=== PATIENT | male | born 1980 | race African-American/Black ===

== ENCOUNTER 2016-12-01 05:55 | Observation (INO) | payer OTHER ==
[2016-12-01] MEDS ORDERED: ASPIRIN 81 MG CHEW PO STA (06:50)
[2016-12-01 07:27] LABS: Basophils # (A) 0.1 k/uL (0-0.2); Basophils % (A) 0 %; CH 30.5; CHCM 33.8; Eosinophils # (A) 0.3 k/uL (0-0.7); Eosinophils % (A) 2 %; HCT 47.4 % (39.0-53.0); HDW 2.59; HGB 15.8 gm/dL (13.0-17.5); Luc # (Auto) 0.09; Luc % (Auto) 1; Lymphocytes # (A) 1.9 k/uL (1.0-4.8); Lymphocytes % (A) 11 %; MCH 30.3 pg (25.0-35.0); MCHC 33.3 g/dL (31.0-37.0); Mean Platelet Volume 8.5; Monocytes # (A) 0.5 k/uL (0-1.0); Monocytes % (A) 3 %; Neutrophils % (A) 83 %; RBC 5.21 m/uL (4.30-5.90); WBC 16.8 k/uL (3.8-10.6); WBC (Perox) 16.69
[2016-12-01 07:40] LABS: ALT 29 U/L (21-72); AST 27 U/L (17-59); Acetaminophen <10.0 ug/mL; Alkaline Phosphatase 55 U/L (38-126); Anion Gap 12 mmol/L; Blood Urea Nitrogen 13 mg/dL (9-20); Calcium 8.4 mg/dL (8.4-10.2); Carbon Dioxide 24 mmol/L (22-30); Chloride 103 mmol/L (98-107); Glucose 380 mg/dL (74-99); Magnesium 2.1 mg/dL (1.6-2.3); Non-African American GFR(MDRD) 48 (>60 ml/min/1.73 sqM); Potassium 4.3 mmol/L (3.5-5.1); Sodium 139 mmol/L (137-145); Total Bilirubin 1.6 mg/dL (0.2-1.3); Total Protein 6.3 g/dL (6.3-8.2)
[2016-12-01 07:48] LABS: INR 1.1 (<1.1); Partial Thromboplastin Time 22.2 sec (22.0-30.0); Prothrombin Time 10.8 sec (9.0-12.0)
[2016-12-01 07:52] LABS: Creatine Kinase 254 U/L (55-170)
--- NOTE | 2016-12-01 07:54 | XR ---
EXAMINATION TYPE: XR chest 1V portable DATE OF EXAM: 12/01/2016 COMPARISON: NONE HISTORY: Chest pain TECHNIQUE: Single frontal view of the chest is obtained. FINDINGS: There is no focal air space opacity, pleural effusion, or pneumothorax seen. The cardiac silhouette size is within normal limits. The osseous structures are intact. IMPRESSION: 1. No acute process.
[2016-12-01] MEDS ORDERED: HEPARIN SODIUM,PORCINE 5,000 UNIT/ML 1 ML VIAL IV ONE (07:58)
[2016-12-01] MEDS ORDERED: NITROGLYCERIN SL TABS 0.4 MG TAB SUBLINGUAL PRN (07:58)
[2016-12-01] MEDS ORDERED: HEPARIN SODIUM,PORCINE/D5W PMX 25,000 UNIT in DEXTROSE/WATER 1 500ML.BAG IV SCH (08:00)
[2016-12-01 08:05] LABS: Creatine Kinase MB 1.4 ng/mL (0.0-2.4); Troponin I <0.012 ng/mL (0.000-0.034)
[2016-12-01] MEDS ORDERED: NALOXONE 0.4 MG/ML 1 ML VIAL IV STA (08:06)
--- NOTE | 2016-12-01 08:06 | ED ---
Overdose HPI - General Source: patient, EMS Mode of arrival: EMS Limitations: altered mental status - History of Present Illness MD Complaint: accidental overdose -: unknown Context: Accidental Overdose: wanted to get high <RosaMan - Last Filed: 12/01/16 08:02> <Justo Soriano - Last Filed: 12/01/16 10:15> - General Chief Complaint: Overdose Stated Complaint: Altered Mental Status Time Seen by Provider: 12/01/16 06:02 - History of Present Illness Initial Comments: This patient is a 36-year-old man brought by EMS for suspected overdose. The patient was reportedly found unresponsive by his roommate, who felt that he was not breathing and called EMS. EMS did arrive and found the patient with appear to be agonal respirations and administered Narcan at which point the patient became alert. The patient did reportedly admit to using some cocaine but denied using opioids. When I interview the patient he states that he does occasionally alliance party. Denied use of alcohol. Patient denied chest pain or dyspnea. No abdominal pain. (Man Lee) - Related Data Home Medications Medication Instructions Recorded Confirmed No Known Home Medications [No 06/30/16 12/01/16 Known Home Medications] Allergies Allergy/AdvReac Type Severity Reaction Status Date / Time Penicillins Allergy Unknown Verified 12/01/16 06:03 Review of Systems ROS Other: All systems not noted in ROS Statement are negative. Limitations: ROS unobtainable due to patients medical condition Respiratory: Denies: cough, dyspnea Cardiovascular: Denies: chest pain Gastrointestinal: Denies: abdominal pain, vomiting Musculoskeletal: Denies: back pain Skin: Denies: rash Neurological: Denies: headache, weakness Psychiatric: Denies: suicidal thoughts <RosaMan - Last Filed: 12/01/16 08:02> ROS Other: All systems not noted in ROS Statement are negative. <Justo Soriano - Last Filed: 12/01/16 10:15> ROS Statement: Those systems with pertinent positive or pertinent negative responses have been documented in the HPI. Past Medical History Additional Past Medical History / Comment(s): ulcers History of Any Multi-Drug Resistant Organisms: None Reported Additional Past Surgical History / Comment(s): ulcer repair, Past Psychological History: No Psychological Hx Reported Smoking Status: Current every day smoker Past Alcohol Use History: None Reported Past Drug Use History: None Reported <StephanietamMan - Last Filed: 12/01/16 08:02> General Exam Limitations: physical limitation General appearance: alert, appears intoxicated Head exam: Present: atraumatic, normocephalic Eye exam: Present: normal appearance. Absent: scleral icterus, conjunctival injection ENT exam: Present: mucous membranes dry Neck exam: Present: normal inspection, full ROM. Absent: meningismus Respiratory exam: Present: normal lung sounds bilaterally. Absent: respiratory distress, wheezes, rales, rhonchi, stridor Cardiovascular Exam: Present: tachycardia, irregular rhythm, normal heart sounds. Absent: systolic murmur, diastolic murmur, rubs, gallop GI/Abdominal exam: Present: soft. Absent: distended, tenderness, guarding, rebound, mass Extremities exam: Present: normal inspection, normal capillary refill. Absent: pedal edema, calf tenderness Back exam: Present: normal inspection. Absent: CVA tenderness (R), CVA tenderness (L) Neurological exam: Present: altered, oriented X3, CN II-XII intact. Absent: motor sensory deficit Skin exam: Present: warm, dry, intact, normal color. Absent: rash <RosaMan - Last Filed: 12/01/16 08:02> Medical Decision Making - Lab Data Result diagrams: 12/01/16 06:11 12/01/16 06:11 - EKG Data -: EKG Interpreted by [facility] EKG shows normal: axis (Normal), intervals (Normal), QRS complexes (Normal), ST- T waves (Normal) Rate: tachycardia Interpretation: other (The underlying rhythm appears to be atrial fibrillation with a rate approximately 111) <RosaMan - Last Filed: 12/01/16 08:02> - Lab Data Result diagrams: 12/01/16 06:11 12/01/16 06:11 - Radiology Data Radiology results: report reviewed (Chest x-ray is negative for acute disease), image reviewed <Justo Soriano - Last Filed: 12/01/16 10:15> - Medical Decision Making 36 mallei are with new-onset A. fib polysubstance drug abuse and chest pain. Patient be admitted for rule out cardiac disease, likely drug induced A. fib and monitoring of alert, mental status (Justo Soriano) - Lab Data Lab Results 12/01/16 12/01/16 12/01/16 Range/Units 06:11 06:11 06:11 WBC 16.8 H (3.8-10.6) k/uL RBC 5.21 (4.30-5.90) m/uL Hgb 15.8 (13.0-17.5) gm/dL Hct 47.4 (39.0-53.0) % MCV 91.0 (80.0-100.0) fL MCH 30.3 (25.0-35.0) pg MCHC 33.3 (31.0-37.0) g/dL RDW 13.0 (11.5-15.5) % Plt Count 209 (150-450) k/uL Neutrophils % 83 % Lymphocytes % 11 % Monocytes % 3 % Eosinophils % 2 % Basophils % 0 % Neutrophils # 14.0 H (1.3-7.7) k/uL Lymphocytes # 1.9 (1.0-4.8) k/uL Monocytes # 0.5 (0-1.0) k/uL Eosinophils # 0.3 (0-0.7) k/uL Basophils # 0.1 (0-0.2) k/uL PT (9.0-12.0) sec INR (<1.1) APTT (22.0-30.0) sec Sodium 139 (137-145) mmol/L Potassium 4.3 (3.5-5.1) mmol/L Chloride 103 (98-107) mmol/L Carbon Dioxide 24 (22-30) mmol/L Anion Gap 12 mmol/L BUN 13 (9-20) mg/dL Creatinine 1.61 H (0.66-1.25) mg/dL Est GFR (MDRD) Af Amer 59 (>60 ml/min/1.73 sqM) Est GFR (MDRD) Non-Af 48 (>60 ml/min/1.73 sqM) Glucose 380 H (74-99) mg/dL Calcium 8.4 (8.4-10.2) mg/dL Magnesium 2.1 (1.6-2.3) mg/dL Total Bilirubin 1.6 H (0.2-1.3) mg/dL AST 27 (17-59) U/L ALT 29 (21-72) U/L Alkaline Phosphatase 55 (38-126) U/L Total Creatine Kinase 254 H (55-170) U/L CK-MB (CK-2) 1.4 (0.0-2.4) ng/mL CK-MB (CK-2) Rel Index 0.6 Troponin I <0.012 (0.000-0.034) ng/mL Total Protein 6.3 (6.3-8.2) g/dL Albumin 3.8 (3.5-5.0) g/dL Urine Opiates Screen (NotDetected) Ur Oxycodone Screen (NotDetected) Urine Methadone Screen (NotDetected) Ur Propoxyphene Screen (NotDetected) Acetaminophen <10.0 ug/mL Ur Barbiturates Screen (NotDetected) U Tricyclic Antidepress (NotDetected) Ur Phencyclidine Scrn (NotDetected) Ur Amphetamines Screen (NotDetected) U Methamphetamines Scrn (NotDetected) U Benzodiazepines Scrn (NotDetected) Urine Cocaine Screen (NotDetected) U Marijuana (THC) Screen (NotDetected) 12/01/16 12/01/16 Range/Units 06:11 06:20 WBC (3.8-10.6) k/uL RBC (4.30-5.90) m/uL Hgb (13.0-17.5) gm/dL Hct (39.0-53.0) % MCV (80.0-100.0) fL MCH (25.0-35.0) pg MCHC (31.0-37.0) g/dL RDW (11.5-15.5) % Plt Count (150-450) k/uL Neutrophils % % Lymphocytes % % Monocytes % % Eosinophils % % Basophils % % Neutrophils # (1.3-7.7) k/uL Lymphocytes # (1.0-4.8) k/uL Monocytes # (0-1.0) k/uL Eosinophils # (0-0.7) k/uL Basophils # (0-0.2) k/uL PT 10.8 (9.0-12.0) sec INR 1.1 (<1.1) APTT 22.2 (22.0-30.0) sec Sodium (137-145) mmol/L Potassium (3.5-5.1) mmol/L Chloride (98-107) mmol/L Carbon Dioxide (22-30) mmol/L Anion Gap mmol/L BUN (9-20) mg/dL Creatinine (0.66-1.25) mg/dL Est GFR (MDRD) Af Amer (>60 ml/min/1.73 sqM) Est GFR (MDRD) Non-Af (>60 ml/min/1.73 sqM) Glucose (74-99) mg/dL Calcium (8.4-10.2) mg/dL Magnesium (1.6-2.3) mg/dL Total Bilirubin (0.2-1.3) mg/dL AST (17-59) U/L ALT (21-72) U/L Alkaline Phosphatase (38-126) U/L Total Creatine Kinase (55-170) U/L CK-MB (CK-2) (0.0-2.4) ng/mL CK-MB (CK-2) Rel Index Troponin I (0.000-0.034) ng/mL Total Protein (6.3-8.2) g/dL Albumin (3.5-5.0) g/dL Urine Opiates Screen Not Detected (NotDetected) Ur Oxycodone Screen Not Detected (NotDetected) Urine Methadone Screen Not Detected (NotDetected) Ur Propoxyphene Screen Not Detected (NotDetected) Acetaminophen ug/mL Ur Barbiturates Screen Not Detected (NotDetected) U Tricyclic Antidepress Not Detected (NotDetected) Ur Phencyclidine Scrn Not Detected (NotDetected) Ur Amphetamines Screen Not Detected (NotDetected) U Methamphetamines Scrn Not Detected (NotDetected) U Benzodiazepines Scrn Not Detected (NotDetected) Urine Cocaine Screen Detected H (NotDetected) U Marijuana (THC) Screen Detected H (NotDetected) Critical Care Time Critical Care Time: Yes Total Critical Care Time: 31 <Justo Soriano - Last Filed: 12/01/16 10:15> Disposition <Man Lee - Last Filed: 12/01/16 08:02> <Justo Soriano - Last Filed: 12/01/16 10:15> Clinical Impression: Accidental drug ingestion, Drug overdose, Atrial fibrillation with RVR, Cocaine abuse, ARF (acute renal failure) Disposition: ADMITTED IP TO THIS HOSP Condition: Fair
[2016-12-01] MEDS ORDERED: DILTIAZEM 125 MG in SODIUM CHLORIDE 0.9% 100 ML IV ONE (08:15)
[2016-12-01] MEDS: SODIUM CHLORIDE 0.9% 1,000 ML IV SCH ×2 (08:31→16:30)
--- NOTE | 2016-12-01 10:50 | CONS ---
DATE OF CONSULTATION: CHIEF COMPLAINT: Atrial fibrillation. Ronny is a 36-year-old gentleman who came to hospital having taken unknown amount of cocaine with possible overdose. He was found to be unresponsive by his roommate, was in respiratory distress, was given Narcan and brought to the ER. When he first arrived, patient was in atrial fibrillation with rapid ventricular rate, but subsequently converted to sinus rhythm. At the time of my evaluation, patient is sleeping soundly, but denies any symptoms when woken up. Past medical history is negative for hypertension, diabetes, dyslipidemia. REVIEW OF SYSTEMS: HEENT is unremarkable. CARDIAC: As described above. RESPIRATORY: Negative. GI: Negative. GENITOURINARY: Negative. ALLERGY/IMMUNOLOGY: Negative. SKIN: Negative. MUSCULOSKELETAL: Negative. ENDOCRINE: Negative. DERMATOLOGY: Negative. CONSTITUTIONAL: Negative. ONCOLOGICAL: Negative. PSYCHOSOCIAL: Significant for drug abuse. The rest of the system review is not relevant. On exam, comfortable at rest. Vital signs are stable. There is no jugular venous distention. Carotid upstroke is normal. There is no bruit. Chest is clear to auscultation and percussion. Heart exam reveals first and second heart sounds. No gallop. No murmur, no rub. Abdomen is soft, nontender. Exam of extremities did not reveal edema. Peripheral pulses are felt. GOLD LAYER exam did not reveal focal neurological deficits. Labs show that the troponin is negative. Potassium is 4.3. Hemoglobin is 15.8. ASSESSMENT: 1. Paroxysmal atrial fibrillation secondary to cocaine abuse. 2. Cocaine abuse with possible overdose. PLAN: I did review the echocardiogram, it does not require any specific therapies for the atrial fibrillation. Patient has been advised to quit drug abuse. No further recommendations are needed at this time. I am going to stop the IV heparin at this time, stop the IV Cardizem also.
[2016-12-01 12:17] VITALS: BMI 23.3
[2016-12-01 12:56] LABS: Creatine Kinase MB 1.7 ng/mL (0.0-2.4); Troponin I 0.026 ng/mL (0.000-0.034)
--- NOTE | 2016-12-01 13:13 | ECHOF ---
Referral Reason:new onset afib MEASUREMENTS -------- HEIGHT: 165.1 cm WEIGHT: 74.8 kg BP: 19/59 RVIDd: 2.8 cm (< 3.3) IVSd: 1.0 cm (0.6 - 1.1) LVIDd: 4.0 cm (3.9 - 5.3) LVPWd: 1.3 cm (0.6 - 1.1) IVSs: 1.1 cm LVIDs: 3.3 cm LVPWs: 1.4 cm LA Diam: 2.7 cm (2.7 - 3.8) Ao Diam: 3.1 cm (2.0 - 3.7) AV Cusp: 2.1 cm (1.5 - 2.6) LA Diam: 3.7 cm (2.7 - 3.8) MV EXCURSION: 18.221 mm (> 18.000) MV EF SLOPE: 123 mm/s (70 - 150) EPSS: 0.5 cm MV E Huber: 0.92 m/s MV DecT: 221 ms MV A Huber: 0.38 m/s MV E/A Ratio: 2.39 RAP: 5.00 mmHg RVSP: 34.14 mmHg FINDINGS -------- Sinus rhythm. This was a technically good study. There is borderline concentric left ventricular hypertrophy. Overall left ventricular systolic function is normal with, an EF between 55 - 60 %. The right ventricle is normal in size. The left atrial size is normal. The right atrial size is normal. The aortic valve is trileaflet, and appears structurally normal. No aortic stenosis or regurgitation. Mild mitral annular calcification present. Mild mitral regurgitation is present. Mild tricuspid regurgitation present. There is no evidence of pulmonary hypertension. The right ventricular systolic pressure, as measured by Doppler, is 34.14mmHg. There is no pulmonic regurgitation present. The aortic root size is normal. There is no pericardial effusion. CONCLUSIONS -------- 1. There is borderline concentric left ventricular hypertrophy. 2. Overall left ventricular systolic function is normal with, an EF between 55 - 60 %. 3. Mild mitral annular calcification present. 4. Mild mitral regurgitation is present. 5. Mild tricuspid regurgitation present. 6. There is no evidence of pulmonary hypertension. 7. The right ventricular systolic pressure, as measured by Doppler, is 34.14mmHg. [employer]OR [employer]OSER MECHANIC: Laurence Lal RDCS
--- NOTE | 2016-12-01 17:58 | P.HPIM ---
History of Present Illness H&P Date: 12/01/16 Chief Complaint: overdose 36 yr old was brought into the hospital via ems as his significant other found him non responsive. they had apparently consumed some inhalational drugs, which they thought to be cocaine. She states that this has never happened before. Pt was non responsive, was given 2 doses of narcan and his respiratory rate improved rapidly Pt was slightly drowsy during my evaluation states to be tired, and complaints of aches all over his body Pt was also noted to be in a fib with rvr Drug screen was positive for marijuana and cocaine In questioning, they denied using heroin, however stated that could be been a possibility if mixed in. Review of Systems All systems: negative (noted in hpi) Past Medical History Additional Past Medical History / Comment(s): ulcers History of Any Multi-Drug Resistant Organisms: None Reported Additional Past Surgical History / Comment(s): ulcer repair, Past Anesthesia/Blood Transfusion Reactions: No Reported Reaction Past Psychological History: No Psychological Hx Reported Smoking Status: Current every day smoker Past Alcohol Use History: None Reported Past Drug Use History: Cocaine, Marijuana Additional Drug Use History / Comment(s): marijuanna everyday. cocaine occassionally - Past Family History Mother Additional Family Medical History / Comment(s): chrons disease Father Additional Family Medical History / Comment(s): chrons disease Medications and Allergies Home Medications Medication Instructions Recorded Confirmed Type No Known Home Medications [No 06/30/16 12/01/16 History Known Home Medications] Allergies Allergy/AdvReac Type Severity Reaction Status Date / Time Penicillins Allergy Rash/Hives Verified 12/01/16 10:21 tomato Allergy Rash/Hives Verified 12/01/16 10:21 NSAIDS (Non-Steroidal AdvReac Hx of Verified 12/01/16 10:21 Anti-Inflamma Ulcers Physical Exam Vitals: Vital Signs Temp Pulse Pulse Resp BP BP Pulse Ox 12/01/16 16:32 58 L 16 111/59 100 12/01/16 11:39 96.8 F L 60 16 111/55 98 12/01/16 11:07 96.9 F L 76 18 121/63 100 12/01/16 09:49 96.9 F L 67 20 113/56 100 12/01/16 09:20 82 18 114/59 100 12/01/16 08:46 96.6 F L 80 22 106/70 100 12/01/16 07:01 126 H 18 111/75 99 12/01/16 06:34 94.6 F L 120 H 16 110/66 100 12/01/16 05:56 94.4 F L 121 H 18 115/82 100 Intake and Output 12/01/16 12/01/16 12/01/16 06:59 14:59 22:59 Intake Total 500 Output Total 350 Balance 150 Intake: IV 500 Sodium Chloride 0.9% 1, 500 000 ml @ 100 mls/hr IV . Q10H [facility] Rx#:[id number] Output: Urine 350 Other: Weight 74.843 kg 76 kg Patient Weight 12/02/16 06:59 Weight 76 kg - Constitutional General appearance: mild distress - EENT Eyes: EOMI, PERRLA - Neck Neck: normal ROM - Respiratory Respiratory: bilateral: CTA, negative: dullness, rales, rhonchi - Cardiovascular Rhythm: regular Heart sounds: normal: S1, S2 Abnormal Heart Sounds: no systolic murmur - Gastrointestinal General gastrointestinal: normal bowel sounds, no organomegaly, soft - Integumentary Integumentary: normal - Neurologic Neurologic: CNII-XII intact - Psychiatric Psychiatric: A&O x's 3 Results CBC & Chem 7: 12/01/16 06:11 12/01/16 06:11 Labs: Abnormal Lab Results - Last 24 Hours (Table) 12/01/16 12/01/16 12/01/16 Range/Units 06:11 06:11 06:11 WBC 16.8 H (3.8-10.6) k/uL Neutrophils # 14.0 H (1.3-7.7) k/uL Creatinine 1.61 H (0.66-1.25) mg/dL Glucose 380 H (74-99) mg/dL Total Bilirubin 1.6 H (0.2-1.3) mg/dL Total Creatine Kinase 254 H (55-170) U/L Urine Cocaine Screen (NotDetected) U Marijuana (THC) Screen (NotDetected) 12/01/16 12/01/16 Range/Units 06:20 12:00 WBC (3.8-10.6) k/uL Neutrophils # (1.3-7.7) k/uL Creatinine (0.66-1.25) mg/dL Glucose (74-99) mg/dL Total Bilirubin (0.2-1.3) mg/dL Total Creatine Kinase 209 H (55-170) U/L Urine Cocaine Screen Detected H (NotDetected) U Marijuana (THC) Screen Detected H (NotDetected) Assessment and Plan Plan: Polysubstance overdose, with respiratory depression suspect some opioid compound New onset a fib with rvr due to cocaine leucocytosis likely reactive Plan symptomatic treatment current in NSR echocardiogram CHADSVASC of 0, however this paroxysmal due to cocaine moniter overnight ivf currently showing signs of cocaine withdrawal symptom control
[2016-12-01 19:01] LABS: Creatine Kinase MB 2.4 ng/mL (0.0-2.4); Troponin I 0.014 ng/mL (0.000-0.034)
[2016-12-01] MEDS ORDERED: ONDANSETRON 4 MG/2 ML VIAL IVP PRN (20:42)
[2016-12-01] MEDS: HEPARIN SODIUM,PORCINE 5,000 UNIT/ML 1 ML VIAL SQ SCH (21:57)
[2016-12-02 04:39] LABS: Cholesterol 136 mg/dL (<200); HDL Cholesterol 33 mg/dL (40-60); Triglycerides 131 mg/dL (<150)
[2016-12-02] MEDS: SODIUM CHLORIDE 0.9% 1,000 ML IV SCH (07:39)
[2016-12-02] MEDS ORDERED: ACETAMINOPHEN TAB 325 MG TAB PO PRN (08:17)
[2016-12-02 08:20] VITALS: RESP 16; TEMP 98
[2016-12-02] MEDS ORDERED: ASPIRIN 325 MG TAB PO SCH (09:00)
[2016-12-02 12:11] VITALS: BP 120/64; PULSE 68
--- NOTE | 2016-12-02 12:44 | PN ---
This is a 36-year-old gentleman who is admitted to hospital with acute cocaine overdose. This morning he is feeling much better free of symptoms. Physical exam is benign and unchanged. I reviewed his echo. It shows normal wall motion and LV function. On exam, comfortable at rest. Vital signs are stable. There is no jugular distention. Chest exam reveals good air entry bilaterally. Heart exam reveals first and second heart sounds. No gallop. ABDOMEN: Soft. Exam of the extremities did not reveal edema. Peripheral pulses are felt. ASSESSMENT: Cocaine overdose. PLAN: The patient is doing well. Encouraged him to quit using cocaine. Reviewed echo results. Does not require further cardiac work-up at this time. When he stops using cocaine, he should follow up with us and we might consider further work-up if necessary.
[2016-12-02] MEDS: HEPARIN SODIUM,PORCINE 5,000 UNIT/ML 1 ML VIAL SQ SCH (14:14)
--- NOTE | 2016-12-02 18:05 | P.DS ---
Providers Date of admission: 12/01/16 08:28 Attending physician: Mehran Paz MD Consults: 12/01/16 07:58 Consult Physician Routine Consulting Provider: Ra Omalley Consult Reason/Comments: new onset strial fibrillation Do you want consulting provider notified?: Yes Primary care physician: Stated None Hospital Course: 36 yr old was brought into the hospital via ems as his significant other found him non responsive. they had apparently consumed some inhalational drugs, which they thought to be cocaine. She states that this has never happened before. Pt was non responsive, was given 2 doses of narcan and his respiratory rate improved rapidly Pt was slightly drowsy during my evaluation states to be tired, and complaints of aches all over his body Pt was also noted to be in a fib with rvr Drug screen was positive for marijuana and cocaine In questioning, they denied using heroin, however stated that could be been a possibility if mixed in. 12/02/16 doing well improved states to be weak however was able to ambulate - HEENT Eyes: EOMI, PERRLA - Neck Neck: normal ROM - Respiratory Respiratory: bilateral: CTA, negative: dullness, rales, rhonchi - Cardiovascular Rhythm: regular Heart sounds: normal: S1, S2 Abnormal Heart Sounds: no systolic murmur - Gastrointestinal General gastrointestinal: normal bowel sounds, no organomegaly, soft - Integumentary Integumentary: normal - Neurologic Neurologic: CNII-XII intact - Psychiatric Psychiatric: A&O x's 3 Assessment and Plan Plan: Polysubstance overdose, with respiratory depression suspect some opioid compound New onset a fib with rvr due to cocaine leucocytosis likely reactive dc home discussed cessation of substance abuse aspirin 325mg for paroxysmal afib Patient Condition at Discharge: Fair Plan - Discharge Summary New Discharge Prescriptions: New Aspirin 325 mg PO DAILY #30 tab Discharge Medication List Aspirin 325 mg PO DAILY #30 tab 12/02/16 [Rx] Follow up Appointment(s)/Referral(s): None,Stated [Primary Care Provider] - 1-2 days (follow up with PCP ) Discharge Disposition: HOME SELF-CARE
== END 2016-12-02 14:36 | disposition home or self-care (01) ==
LOC: EC 05:55 → 6SEL 08:28 → INTOOBSV 08:28 → 6SEL 10:51
PROVIDERS: ADMIT Internal Medicine; ATTEND Internal Medicine
DX: T40.5X1A Poisoning by cocaine, accidental (unintentional), initial encounter (principal); I48.0 Paroxysmal atrial fibrillation; N17.9 Acute kidney failure, unspecified; D72.829 Elevated white blood cell count, unspecified; R06.00 Dyspnea, unspecified; R41.82 Altered mental status, unspecified; F12.10 Cannabis abuse, uncomplicated; T50.901A Poisoning by unspecified drugs, medicaments and biological substances, accidental (unintentional), initial encounter; R07.9 Chest pain, unspecified; F17.200 Nicotine dependence, unspecified, uncomplicated; R53.1 Weakness; Z87.11 Personal history of peptic ulcer disease; Z88.6 Allergy status to analgesic agent; Z88.0 Allergy status to penicillin; Z91.018 Allergy to other foods; Z83.79 Family history of other diseases of the digestive system; Z71.51 Drug abuse counseling and surveillance of drug abuser
CPT/HCPCS: 96376; 82075; 96365; 96366; 96375; 99291; 36415; 93005; 93306; 80061; 80053; 82550; 82553; 83735; 84484; 85025; 85610; 85730; 80306; 83520; 71010; G0378 ×2; J1644 ×2; J2310

== ENCOUNTER 2017-11-12 10:28 | Emergency (ER) | payer OTHER ==
[2017-11-12 10:43] VITALS: RESP 18
[2017-11-12] MEDS ORDERED: AZITHROMYCIN 500 MG TAB PO STA (10:56)
[2017-11-12] MEDS ORDERED: cefTRIAXone 250 MG VIAL IM STA (10:56)
--- NOTE | 2017-11-12 11:07 | ED ---
Male Urogenital HPI - General Chief complaint: Urogenital Stated complaint: STD Time Seen by Provider: 11/12/17 10:45 Source: patient Mode of arrival: ambulatory Limitations: no limitations - History of Present Illness Initial comments: Patient is a 37-year-old sexually active for a sexual male who presents with a chief complaint of penile discharge. This is been going on for 3-5 days. The patient states he currently has 2 or 3 sexual partners. Patient states that he is having some urethral discharge that is yellow in color. Patient denies pain. Patient states that his urinary stream is irregular secondary to possible. Patient has a medical history that includes previous gonorrhea infection. Patient does not have any known sexual contacts that may have exposed him. - Related Data Previous Rx's Medication Instructions Recorded Doxycycline [Vibramycin] 100 mg PO Q12HR #28 capsule 11/12/17 Allergies Allergy/AdvReac Type Severity Reaction Status Date / Time Penicillins Allergy Rash/Hives Verified 11/12/17 10:50 tomato Allergy Rash/Hives Verified 11/12/17 10:50 NSAIDS (Non-Steroidal AdvReac Hx of Verified 11/12/17 10:50 Anti-Inflamma Ulcers Review of Systems ROS Statement: Those systems with pertinent positive or pertinent negative responses have been documented in the HPI. ROS Other: All systems not noted in ROS Statement are negative. Genitourinary: Reports: discharge Past Medical History Additional Past Medical History / Comment(s): ulcers History of Any Multi-Drug Resistant Organisms: None Reported Additional Past Surgical History / Comment(s): ulcer repair, Past Anesthesia/Blood Transfusion Reactions: No Reported Reaction Past Psychological History: No Psychological Hx Reported Smoking Status: Current every day smoker Past Alcohol Use History: None Reported Past Drug Use History: Cocaine, Marijuana - Past Family History Mother Additional Family Medical History / Comment(s): chrons disease Father Additional Family Medical History / Comment(s): chrons disease General Exam Limitations: no limitations General appearance: alert, in no apparent distress Head exam: Present: atraumatic, normocephalic Eye exam: Present: normal appearance ENT exam: Present: normal exam Neck exam: Present: normal inspection Respiratory exam: Present: normal lung sounds bilaterally. Absent: respiratory distress, wheezes Cardiovascular Exam: Present: regular rate, normal rhythm GI/Abdominal exam: Present: soft. Absent: distended, tenderness Rectal exam: Present: deferred exam: Present: urethral discharge (There is some excoriation at the urethral meatus, there is scant yellow discharge.), circumcision. Absent: testicular tenderness, scrotal swelling Extremities exam: Present: normal inspection Back exam: Present: normal inspection Neurological exam: Present: alert, oriented X3 Psychiatric exam: Present: normal affect, normal mood Skin exam: Present: warm, dry, intact Course Vital Signs 11/12/17 10:42 Temperature 98.5 F Pulse Rate 62 Respiratory 18 Rate Blood Pressure 102/52 O2 Sat by Pulse 97 Oximetry Medical Decision Making - Medical Decision Making Patient presents with a chief complaint of possible STD. On initial evaluation , vital signs are stable, patient is in no acute distress. History and physical examination is consistent with gonorrhea urethritis. Urinalysis was sent along with gonorrhea and chlamydia aren't A. Patient treated with 1 g of azithromycin, and 250 mg of Rocephin. Currently pending urinalysis, patient will be treated outpatient with doxycycline for 14 days. He was instructed to notify any sexual partners. Patient was instructed to abstain from sexual intercourse for 2 weeks. 11:31 AM Urinalysis shows leukouria without nitrates or leukocyte esterase. patient given abx in the ED, discharged on doxycycline for 14 days. patient instructed to follow up with primary care in 1-2 days, RTED if sx worsen or change. again instructed to obstain from sexual intercouse and notify all sexual partners. - Lab Data Lab Results 11/12/17 Range/Units 11:00 Urine Color Yellow Urine Appearance Cloudy (Clear) Urine pH 5.5 (5.0-8.0) Ur Specific [place] 1.013 (1.001-1.035) Urine Protein Negative (Negative) Urine Glucose (UA) Negative (Negative) Urine Ketones Negative (Negative) Urine Blood Negative (Negative) Urine Nitrite Negative (Negative) Urine Bilirubin Negative (Negative) Urine Urobilinogen <2.0 (<2.0) mg/dL Ur Leukocyte Esterase Large H (Negative) Urine WBC >182 H (0-5) /hpf Urine Bacteria Rare H (None) /hpf Urine Mucus Rare H (None) /hpf Disposition Clinical Impression: Gonococcal urethritis in male Disposition: HOME SELF-CARE Condition: Good Instructions: Gonorrhea (ED) Prescriptions: Doxycycline [Vibramycin] 100 mg PO Q12HR #28 capsule Is patient prescribed a controlled substance at d/c from ED?: No Referrals: None,Stated [Primary Care Provider] - 1-2 days Margaret Acharya MD [STAFF PHYSICIAN] - 1-2 days Byron Slade MD [REFERRING] - 1-2 days
[2017-11-12 11:27] LABS: Appearance,Urine Cloudy (Clear); Bacteria,Urine Rare /hpf; Bilirubin,Urine Negative (Negative); Blood,Urine Negative (Negative); Color,Urine Yellow; Glucose,Urine (UA) Negative (Negative); Ketones,Urine Negative (Negative); Leukocyte Esterase,Urine Large (Negative); Mucus,Urine Rare /hpf; Nitrite,Urine Negative (Negative); PH, Urine 5.5 (5.0-8.0); Protein,Urine Negative (Negative); Specific Gravity,Urine 1.013 (1.001-1.035); Urobilinogen,Urine <2.0 mg/dL (<2.0); WBC,Urine >182 /hpf (0-5)
[2017-11-12 11:52] VITALS: BP 116/55; PULSE 61; TEMP 97.7
[2017-11-14 12:54] LABS: C. trachomatis,PCR Negative (Neg,Equiv); Chlamydia trachomatis Source Urine; N. gonorrhoeae,PCR Positive (Neg,Equiv); Neisseria Source Urine
== END 2017-11-12 11:50 | disposition home or self-care (01) ==
LOC: EC 10:28
DX: A54.01 Gonococcal cystitis and urethritis, unspecified (principal); F17.200 Nicotine dependence, unspecified, uncomplicated; Z88.0 Allergy status to penicillin; Z91.018 Allergy to other foods; Z88.6 Allergy status to analgesic agent
CPT/HCPCS: 81001; 87491; 87591; 99283; 96372; J0696